=== PATIENT | female | born 1985 | race Caucasian/White ===

== ENCOUNTER 2025-02-24 10:34 | Outpatient (CLI) | payer OTHER, SELFPAY ==
--- OUTSIDE RECORDS SUMMARY | 2025-02-24 10:49 | XMS_ITS ---
Author Organization [facility] Address [address] [facility] [address] [place] [address] Care Team Providers Care Rehabilitation Services Counselor Name Role Phone SHILOHRENETTA Primary Care Provider Monster PRIETO MD [facility], JAMISON [facility] [phone] REASON FOR VISIT Cancel Appointment Request Encounters Encounter Location Date Provider Diagnosis [facility], [address] [place] [address] 02/12/2025 JAMISON PRIETO MD [facility] Plan Of Treatment Next Appt Details Provider Name:JAMISON PRIETO MD [facility], 03/10/2025 02:00:00 PM, [address] [place], [address], Progress Notes * INESSA GRANT:[birth year] (39 yo F)Acc No.[id number]:02/12/2025 Patient: Alice INESSA WISE :1985 A ge:39 Y S ex:Female Address:[facility] [place] [address] * true * Date: Generated for Printi ng/Faxing/eTransmitting on: 0 02/24/2025 10:48 AM CDT
--- OUTSIDE RECORDS SUMMARY | 2025-02-24 10:49 | XMS_ITS ---
Author Organization Unknown Address [address] [place] [address] [phone] Phone Care Team Providers Care Oim Consultant Name Role Phone LYNN DIAZ Attending Unavailable OTHER PHYSICIAN Primary Unavailable Social History Type Status Start Date End Date Code Code Syst em Smoking History Unknown if ever smoked [address] Sex Female Vital Signs Vital Sign Value Unit Bethel Value Bethel Unit Date/Time Recent/Initial? Code Code System Body Mass Index 48.80 kg/m2 08/20/2024 18:24 Initial 06511 -5 [facility] Systolic Blood Pressure 128 mm[Hg] 08/20/2024 18:24 Initial 8480- 6 [facility] Diastolic Blood Pressure 90 mm[Hg] 08/20/2024 18:24 Initial 8462- 4 [facility] Body Surface Area 2.14 m2 08/20/2024 18:24 Initial 3140- 1 [facility] Height 149.860 0 cm 59.00 in 08/20/2024 18:24 Initial 8302- 2 [facility] O2 Saturation 100 % 2023 18:24 Initial 94496 -5 [facility] Pulse 106.0 /min 08/20/2024 18:24 Initial 8867- 4 [facility] Temperature 37.8 Josette 100.0 F 08/20/20 18:24 Initial 8310- 5 [facility] Weight 109.59 kg 241.60 lbs 08/20/2024 18:24 Initial 69162 -7 [facility] Medications Medication Start Date End Date Route Frequency Dose Code Code System Medication Instructions Home Meds Benzonatate 200MG Oral Capsule, Liquid Filled 08/20/2024 Unknown By Mouth Three times a day 200 CAPSULE 302231 RxNorm 200 CAPSULE By Mouth Three times a day for cough predniSONE 20MG Oral Tablet 08/20/2024 Unknown By Mouth 1 TABLET 738789 RxNorm 1 TABLE T By Mouth At 7a and 4p x5 days: Take with food Doxycycline 100MG Oral Capsule 08/23/2024 Unknown By mouth Twice a day 1 TABLET 5737975 RxNorm Start on 08/23/24 if not improvin TABLET By mouth Twice a day for 7 days Hospital Discharge Instructions Should you have any questions prior to discharge, please contact a member of your healthcare team. If you have left the hospital and have any questions, please contact your primary care physician. Reason For Referral No Data Found Allergies and Adverse Reactions Allergy Substance Reaction Severity Start Date Concern Status Co de Code System AZITHROMYCIN Active RxNorm CLARITHROMYCIN Active 73337 RxNorm BACTRIM Active 608545 RxNorm Plan of Treatment Future Order Description Future Order Date Futu re Order Loinc: COVID & FLU A AND B CHITRA 08/20/2024 LOINC: 91715-1 Encounters Encounter Diagnosis Start Date Code Code Sys tem Acute sinusitis 08/20/2024 41431088 SNOMED-CT Personal Care Team Section Performer Name Performer Role Active Date Inactive Da te Progress Notes [facility] 08/20/2024 20:22 Admission Date/Time: 08/20/2024 17:48 Convenient Care Visit Chief Complaint: URI COUGH / FEVER HPI: Presents ambulatory to clinic with complaint of nonproductive cough, occasional wheezing, chest congestion, body aches, intermittent frontal headaches, fatigue, sinus congestion/pressure, and postnasal drainage x 3 days. intermittent fever X 1 day. This afternoon temp of 102.0 degrees Used OTC cough suppressant with some short-term improvement. Denies any SOB, CP, wheezing, sore throat, ABD pain, or N/V/D. PO intake is normal. Denies any known sick contacts. Denies that self or any family members have had any recent travels. Did receive COVID-19 vaccination. denies history of COVID-19 infection. PMH: depression, anxiety, thyroid disorder, psoriasis( currently Plaquenil), obesity(reports that she was put on metformin for obesity) Denies nicotine use. Denies marijuana use. Denies drug use. EXAM: General: NAD, A&O. Healthy appearance. body aches, frontal headache pain 4/10 at present on faces pain scale. HEAD: mild maxillary sinus tenderness; no frontal sinus tenderness Eyes: Normal appearance, clear. PERRLA ENT: Bilateral external ear canals clear, TM visible with mild TM bulging, clear effusion otherwise TM color WNL. Pharynx WNL1. Clearing oral secretions well. Mucus membranes are moist and pink. Nares are patent with clear drainage. Neck/Lymph: No adenopathy, non tender. ROM WNL. No nuchal rigidity. Lungs: faint expiratory wheeze noted to mid lobes posterior aspect. Respirations with ease. No retractions noted. Able to speak in full sentences. Occasional harsh cough noted during exam. Cardiac: heart regular rhythm, rate. No M/G/R MS/NEURO: CN II-XII grossly intact. EOMI. Upper and lower ext strength normal and equal bilaterally. Ambulated to room and within room with stable gait. No nuchal rigidity. Skin: warm, dry. Normal color ASSESSMENT/DIAGNOSIS: 1. Acute sinusitis, mild 2. Acute bronchitis, mild 3. acute cough, mild 4. Acute bilateral eustachian tube dysfunction, mild Zyrtec, Flonase, Afrin for 4 days only 5. acute myalgias, mild 6. Encounter to obtain excuse from work: ICD 10 CODE Z02.89 Differential diagnosis: COVID-19, RSV, influenza, Viral vs bacterial vs allergic rhinosinusitis, community-acquired pneumonia PLAN: Diagnostics: PCR flu/COVID-19 test: pending Medications: Prednisone, Tessalon Perles. Start doxycycline 08/23/24 if not improving OTC Zyrtec, Sudafed, Afrin, Flonase, Mucinex plain, honey, Tylenol or ibuprofen p.r.n. pain. Zinc, vitamin D 3, vitamin-C for immune health. Instructions: Take/use medications as directed. Increase fluids, Cool mist humidifier, nasal irrigation, saline gargles. Change the filter on your heating/air unit. Avoid respiratory irritants. Wash hands with antibacterial soap often and use hand granite cutter when washing with hand soap is unavailable. See above for any additional instructions Follow up: PCP or CC in 2 days if not improving, otherwise follow-up with PCP as needed. ER if any symptoms become severe *This plan has been reviewed with the patient. Questions and concerns were addressed. Patient verbalized understanding of the treatment plan and need for follow up. This examination was transcribed using the [employer] voice recognition system without human basting marker. In an effort to expedite patient care, this report has not been adjusted for typographical, or medical or syntax by a trained medical device assembler. Allergy Table Allergen Type Reaction AZITHROMYCIN Medication CLARITHROMYCIN Medication BACTRIM Medication Vital Signs: This Visit HtWt Date/Time BP (mm/Hg) BP Position/Site Heart Rate Resp Temp (F) SPO2% Pain Score Height (in) Weight (lbs/ozs) BMI Head Cir (cm) 08/20/2024 18:24 128/90 Sitting/Left Arm 106 100 Oral 100 % 59 in 241.10 48.8 Lab Results: This Visit: No Labs Available Meds Given This Visit: Meds ordered and administered this visit: No Current Medications Available Discharge Med List: Discharge Medications Medication Special Instructions Start Date Prescribing MD Doxycycline 100MG Oral Capsule Start on 08/23/24 if not improvin TABLET By mouth Twice a day for 7 days 08/23/2024 LYNN DIAZ predniSONE 20MG Oral Tablet 1 TABLET By Mouth At 7a and 4p x5 days: Take with food 08/20/2024 LYNN DIAZ Benzonatate 200MG Oral Capsule, Liquid Filled 200 CAPSULE By Mouth Three times a day for cough 08/20/2024 LYNN DIAZ
--- OUTSIDE RECORDS SUMMARY | 2025-02-24 10:49 | XMS_ITS | Referral Summary ---
Author Organization [facility] Address [address] [place] [address] Care Team Providers Care Director Wholesale Name Role Phone Kathie Aleman NP Primary Care Provider [phone] Allergies Active Allergy Reactions Criticality Noted Date Comments Azithromycin Nausea & Vomiting Low 07/23/2018 Beet Rash Medium 07/23/2018 Clarithromycin Edema,Unknown Medium 07/23/2018 Rash Sulfamethoxazole-Trimethoprim Shortness of breath,Unknown High 07/23/2018 Medications montelukast (SINGULAIR) 10 mg tablet montelukast 10 mg tablet TAKE ONE TABLET BY MOUTH ONCE DAILY Active albuterol HFA (PROVENTIL HFA,VENTOLIN HFA,PROAIR HFA) 90 mcg/actuation inhaler Ventolin HFA 90 mcg/actuation aerosol inhaler Active ibuprofen (ADVIL,MOTRIN) 800 mg tablet Take 1 tablet (800 mg total) by mouth as needed Active folic acid (FOLVITE) 1 mg tablet Take 1 tablet (1 mg total) by mouth daily 90 tablet 3 1 Active buPROPion XL (WELLBUTRIN XL) 150 mg 24 hr tablet bupropion HCl XL 150 mg 24 hr tablet, extended release Active clobetasoL (TEMOVATE) 0.05 % ointmentIndicat ions:Plaque Psoriasis Apply 1-2 times a day to rash on the elbows for no more than 2 weeks at a time 60 g 2 3 Active lidocaine (LIDODERM) 5 % PLACE ONE PATCH ONTO THE SKIN DAILY, REMOVE AND DISCARD PATCH WITHIN 12 HOURS OR DIRECTED BY DOCTOR 3 Active DULoxetine 40 mg capsule,delayed release(DR/EC) Take 1 capsule by mouth daily 3 Active phentermine (ADIPEX-P) 37.5 mg tablet Take 1 tablet (37.5 mg total) by mouth daily Active metFORMIN (GLUCOPHAGE) 500 mg tablet Take 1 tablet (500 mg total) by mouth daily Active metoprolol tartrate (LOPRESSOR) 25 mg immediate release tablet TAKE 1/2 (ONE-HALF) TABLET BY MOUTH TWICE DAILY Active levothyroxine (SYNTHROID) 100 mcg tablet Take 1 tablet (100 mcg total) by mouth daily 4 Active hydroxychloroqu ine (PLAQUENIL) 200 mg tablet Take 2 tablets (400 mg total) by mouth daily 180 tablet 1 5 Active Active Problems Problem Noted Date Diagnosed Date Psoriasis 01/29/2020 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 Hypothyroidism 04/16/2018 Lupus erythematosus 04/16/2018 Obesity 04/16/2018 cardiomyopathy 04/16/2018 Fibromyalgia 12/20/2017 Resolved Problems Problem Noted Date Diagnosed Date Resolved Date Acute sinusitis 04/16/2018 05/18/2020 Disorder of thyroid gland 04/16/2018 Ganglion cyst 04/16/2018 05/18/2020 Vaginal infection 04/16/2018 05/18/2020 Varicose veins of left lower extremity 04/16/2018 05/18/2020 Social History Tobacco Use Types Packs/Day Years Used Date Smoking Tobacco: Never Smokeless Tobacco: Never Tobacco Cessation:Counseling Given: Not Answered Alcohol Use Standard Drinks/Week Comments Yes 0 (1 standard drink = 0.6 oz pur e alcohol) rarely AUDIT-C Answer Date Recorded Frequency of Alcohol Consumption Not on file 10/23/2024 Q2: How many drinks containi ng alcohol do you have on a typical day when you are drinking? Patient does not drink 5 Frequency of Binge Drinking Not on file 06/2025 Comments No Sex and Gender Information Value Date Recorded Sex Assigned at Not on file Legal Sex Female 6:51 AM EXPLOSIVE ORDNANCE TECHNICIAN Gender Identity Female 08/01/2020 7:11 PM CDT Sexual Orientation Straight 08/31/2022 5: 47 PM EXPLOSIVE ORDNANCE TECHNICIAN Last Filed Vital Signs Vital Sign Reading Time Taken Comments Blood Pressure 124/80 10/23/2024 11:02 AM EXPLOSIVE ORDNANCE TECHNICIAN Pulse 78 10/23/2024 11:02 AM EXPLOSIVE ORDNANCE TECHNICIAN Temperature 36.2 C (97.1 F) 10/23/2024 11:02 AM EXPLOSIVE ORDNANCE TECHNICIAN Respiratory Rate 16 07/23/2018 9:54 AM CDT Oxygen Saturation 100% 09/03/2023 9:20 AM EXPLOSIVE ORDNANCE TECHNICIAN Inhaled Oxygen Concentration - - Weight 110.9 kg (244 lb 8 oz) 10/23/2024 11:02 A M EXPLOSIVE ORDNANCE TECHNICIAN Height 149.9 cm (4' 11 ) 10/23/2024 11:02 AM EXPLOSIVE ORDNANCE TECHNICIAN Body Mass Index 49.38 10/23/2024 11:02 AM EXPLOSIVE ORDNANCE TECHNICIAN Plan of Treatment Not on file Insurance [facility] [place] [address] [facility] MEDICAID [facility] HMO/PPO Address: [address] [address] [place] [address] [facility] Care Teams Director Wholesale Relationship Specialty Start Date End Date Kathie Aleman NP [address] [place] [address] PCP - General Nurse Practitioner 05/18/20
--- OUTSIDE RECORDS SUMMARY | 2025-02-24 10:49 | XMS_ITS | Clinical Summary ---
Author Organization [facility] Address [address] [place] [address] Care Team Providers Care Bartenders Name Role Phone Kathie Aleman NP Primary Care Provider [phone] Allergies Active Allergy Reactions Criticality Noted Date [...] veins of left lower extremity 04/16/2018 05/18/2020 Surgical History Surgery Date Site/Laterality Comments SECTION 2006, 2008 CHOLECYSTECTOMY TONSILLECTOMY AND ADENOIDECTOMY TUMOR REMOVAL DILATION AND CURETTAGE OF UTERUS 2005, 2004 Medical History Medical History Date Comments Asthma Thyroid disease Lupus Fibromyalgia Heart disease Family History Medical History Relation Name Comments Heart disease Other 1 Heart Disease - (Added by TW Conv) Diabetes type II Other 2 Type II Alyssa betes Mellitus - (Added by TW Conv) Cancer Other 3 Cancer - (Added by TW Conv) Hypertension Other 4 Hypertension - (Added by TW Conv) Thyroid disease Other 5 Thyroid Diso rder - (Added by TW Conv) Relation Name Status Comments Other 1 Other 2 Other 3 Other 4 Other 5 Social History Tobacco Use Types Packs/Day Years [...] you are drinking? Patient does not drink Frequency of Binge Drinking Not on file 06/2025 Comments No Sex and Gender Information Value Date Recorded Sex Assigned at Not on file Legal Sex Female 6:51 AM HR ADMINISTRATOR Gender Identity Female 08/01/2020 7:11 PM CDT Sexual Orientation Straight 08/31/2022 5: 47 PM HR ADMINISTRATOR Obstetrics History Last Filed Vital Signs Vital Sign Reading Time Taken Comments Blood Pressure 124/80 10/23/2024 11:02 AM HR ADMINISTRATOR Pulse 78 10/23/2024 11:02 AM HR ADMINISTRATOR Temperature 36.2 C (97.1 F) 10/23/2024 11:02 AM HR ADMINISTRATOR Respiratory Rate 16 07/23/2018 9:54 AM CDT Oxygen Saturation 100% 09/03/2023 9:20 AM HR ADMINISTRATOR Inhaled Oxygen Concentration - - Weight 110.9 kg (244 lb 8 oz) 10/23/2024 11:02 A M HR ADMINISTRATOR Height 149.9 cm (4' 11 ) 10/23/2024 11:02 AM HR ADMINISTRATOR Body Mass Index 49.38 10/23/2024 11:02 AM HR ADMINISTRATOR Plan of Treatment Health Maintenance Due Date Last Done Comments Cervical Cancer Screening 1985 Depression Screening 1985 Hepatitis C Screening 1985 Varicella Vaccines (1 of 2 - 13+ 2-dose series) 1999 Hepatitis B Screening 2004 Regular Well Visit/Exam 18-64 2004 Pneumococcal vaccine <65 (1 of 2 - PCV) 2005 Zoster Vaccine (1 of 2) 2005 Influenza Vaccine (#1) 2024 07/06/2016 DTaP/Tdap/Td Vaccine (2 - Td or Tdap) 06/14/2027 06/14/2017 HPV Vaccines Aged Out No longer eligi ble based on patient's age to complete this topic Insurance [facility] MEDICAID [facility] MEDICAID [facility] [place] [address] Care Teams Bartenders Relationship Specialty Start Date End Date Kathie Aleman NP [address] [place] [address] PCP - General Nurse Practitioner 05/18/20
--- OUTSIDE RECORDS SUMMARY | 2025-02-24 10:49 | XMS_ITS ---
Author Organization [facility] Address [address] [facility] [address] [place] [address] Care Team Providers Care Canal Structure Operator Name Role Phone SHILOH RENETTA Primary Care Provider Monster BILLY MD [facility], [facility] Unavailable [phone] Allergies Allergen (clinical drug ingredient) Drug/Non Drug Allergy documented on EMR Reaction Allergy Type Onset Date Status sulfamethoxazole / trimethoprim Bactrim Unknown Drug Allergy Active Biaxin Unknown Drug Allergy Active REASON FOR VISIT 1 month f/u (s/p Echo @ [facility]) Medications Medication SIG (Take, Route, Frequency, Duration) Notes Start Date End Date Status Cymbalta 30 MG 1 capsule Orally Onc e a day Active Phentermine HCl 37.5 MG TAKE 1 TABLET BY MOUTH ONCE DAILY Oral for 30 Days Active buPROPion HCl ER (XL) 150 MG TAKE 1 TABL ET BY MOUTH ONCE DAILY Oral for 30 Days Active metFORMIN HCl 500 MG TAKE 1 TABLET BY [place] [facility] ONCE DAILY Oral for 30 Days Active Metoprolol Tartrate 25 MG Oral for 30 Days Active Levothyroxine Sodium 100 MCG 1 tablet in the morning on an empty stomach Orally Once a day Active DULoxetine HCl 40 MG TAKE 1 CAPSULE BY MOUTH ONCE DAILY Oral for 30 Days Active DULoxetine HCl 40 MG Oral for 30 Days Active Hydroxychloroquine Sulfate 2 00 MG TAKE 2 TABLETS BY MOUTH ONCE DAILY Oral for 30 Days Active Vital Signs Blood pressure systolic 120 mm Hg 02/19/20 24 Blood pressure diastolic 76 mm Hg 024 Heart Rate 80 /min 02/19/2024 Respiratory Rate 16 /min 02/19/2024 Height 59 in 02/19/2024 Weight 240 lbs 02/19/2024 BMI 48.47 kg/m2 02/19/2024 Weight-kg 108.86 kg 02/19/2024 Encounters Encounter Location Date Provider Diagnosis [facility], [address] [place] [address] 02/19/2024 JAMISON BILLY MD [facility] Preoperative cardiovascular examination Z01.810 Assessments Encounter Date Diagnosis (ICD Code) Assessment Notes Treatment Notes Treatment Clinical Notes Section Notes 02/19/2024 Preoperative cardiovascular examination (ICD-10 - Z01.810) Patient has no risk factors. Recent echo (01/30/24) reported normal LV Fx, EF 55%, mild MR, trace TR, trace PI. Patient is cleared for cervical spine surgery from cardiology standpoint. Plan Of Treatment Treatment Notes Assessment Notes Preoperative cardiovascular examination Patient has no risk factors. Recent echo (01/30/24) reported normal LV Fx, EF 55%, mild MR, trace TR, trace PI. Patient is cleared for cervical spine surgery from cardiology standpoint. Next Appt Details Follow Up: 1 Year, Reason: Provider Name:JAMISON BILLY MD [facility], 03/10/2025 02:00:00 PM, [facility] [place], [address], Progress Notes * INESSA GRANT:[birth year] (38 yo F)Acc No.[id number]:02/19/2024 Progress Notes Patient: Alice INESSA WISE Provider: Shelia Billy MD :1985 A ge:38 Y S ex:Female Date:02/19/2024 [address] [id number] Pcp:RENETTA MATAMOROS Subjective: * Chief Complaints: * 1 month f/u (s/p Echo @ [facility]) * HPI: S creening: This is a 38 year old female patient with a past medical history including lupus, fibromyalgia, asthma, hypothyroidism, anxiety/depression, CHF (post-) in 2006, who presents today for a follow up visit for surgical clearance. R ecent echo (01/30/24) reported normal LV Fx, EF 55%, mild MR, trace TR, trace PI. P dario is doing well overall at today's visit with no significant complaints. Denies chest pain, palpitations, or worsening shortness of breath. Patient is cleared for cervical spine surgery from a cardiology standpoint. * Medical History: * Surgical History: l ap cholecsystectomy right arm tumor surgery c. section x2 adenoid removal * Hospitalization/Major Diagno stic Procedure: N o Hospitalization History. * Family History: N o Family History documented.. * Medications: T akingLevothyroxine Sodium 100 MCG Tablet 1 tablet in the morning on an empty stomach Orally Once a day Cymbalta 30 MG Capsule Delayed Release Particles 1 capsule Orally Once a day Phentermine HCl 37.5 MG Tablet TAKE 1 TABLET BY MOUTH ONCE DAILY Oral metFORMIN HCl 500 MG Tablet TAKE 1 TABLET BY MOUTH ONCE DAILY Oral Metoprolol Tartrate 25 MG Tablet Oral buPROPion HCl ER (XL) 150 MG Tablet Extended Release 24 Hour TAKE 1 TABLET BY MOUTH ONCE DAILY Oral DULoxetine HCl 40 MG Capsule Delayed Release Particles TAKE 1 CAPSULE BY MOUTH ONCE DAILY Oral DULoxetine HCl 40 MG Capsule Delayed Release Particles Oral Hydroxychloroquine Sulfate 200 MG Tablet TAKE 2 TABLETS BY MOUTH ONCE DAILY Oral Taking Levothyroxine Sodium 100 MCG Tablet 1 tablet in the morning on an empty stomach Orally Once a day Taking Cymbalta 30 MG Capsule Delayed Release Particles 1 capsule Orally Once a day Taking Phentermine HCl 37.5 MG Tablet TAKE 1 TABLET BY MOUTH ONCE DAILY Oral Taking metFORMIN HCl 500 MG Tablet TAKE 1 TABLET BY MOUTH ONCE DAILY Oral Taking Metoprolol Tartrate 25 MG Tablet Oral Taking buPROPion HCl ER (XL) 150 MG Tablet Extended Release 24 Hour TAKE 1 TABLET BY MOUTH ONCE DAILY Oral Taking DULoxetine HCl 40 MG Capsule Delayed Release Particles TAKE 1 CAPSULE BY MOUTH ONCE DAILY Oral Taking DULoxetine HCl 40 MG Capsule Delayed Release Particles Oral Taking Hydroxychloroquine Sulfate 200 MG Tablet TAKE 2 TABLETS BY MOUTH ONCE DAILY Oral * Allergies: B actrimBiaxinno[Allergies Verified] Objective: * Vitals: B P:120/76mm Hg, HR:80/min, RR:16/min, Ht:59in, Wt:240lbs, BMI:48.47Index, Wt-k.86 kg, Body Surface Area: 2.13. * Examination: G eneral Examination: General appearance: a lert, pleasant, well-nourished and in no acute distress. Head: n ormocephalic, atraumatic. Neck / thyroid: c arotid pulses are normal and without bruits. Heart: r egular rate and rhythm without murmurs, gallops, clicks or rubs. Lungs: c lear to auscultation bilaterally, with good air movement and no rales, rhonchi or wheezes. Extremities: n ormal extremity with no clubbing, cyanosis or edema. Neurologic: a lert and oriented. Psych: n ormal affect / mood. E KG: Heart rate: n ormal rate. Heart rhythm: s inus rhythm (rapid). ST segment: N o acute ischemic changes. Assessment: * Assessment: 1. P reoperative cardiovascular examination - Z01.810 (Primary) Plan: * Treatment: * Procedure Codes: 9 3000 -ELECTROCARDIOGRAM, COMPLETE * Preventive Medicine: Counseling: C are goal follow-up plan: A guido Normal BMI Follow-up G iving encouragement to exercise, Lifestyle education regarding diet. Screenings: F all risk screening F all Risk Assessment: N o falls in the past year. * Follow Up: 1 Year * Billing Information: * Visit Code: 03065 Office Visit, Est Pt., Level 3. * Procedure Codes: 67380 -ELECTROCARDIOGRAM, COMPLETE. * Sign off status: Completed true * Provider: Shelia Billy MD Date: 0 02/19/2024 Generated for Sb tena/Jay/Eagleitting on: 0 02/24/2025 10:49 AM CDT History and Physical Notes * HPI (History of Present Illness) Category Sub-Category Detail Notes Category Not es Screening This is a 38 year old female patient with a past medical history including lupus, fibromyalgia, asthma, hypothyroidism, anxiety/depression, CHF (post-) in 2006, who presents today for a follow up visit for surgical clearance. Recent echo (01/30/24) reported normal LV Fx, EF 55%, mild MR, trace TR, trace PI. Patient is doing well overall at today's visit with no significant complaints. Denies chest pain, palpitations, or worsening shortness of breath. Patient is cleared for cervical spine surgery from a cardiology standpoint. Examination Category Sub-Category Detail Notes Category Not es General Examination General appearance: alert, p leasant, well-nourished and in no acute distress Head: normocephalic, atrau matic Neck / thyroid: carotid pulses are n ormal and without bruits Heart: regular rate and rhy thm without murmurs, gallops, clicks or rubs Lungs: clear to auscultatio n bilaterally, with good air movement and no rales, rhonchi or wheezes Neurologic: alert and oriented Extremities: normal extremity wit h no clubbing, cyanosis or edema Psych: normal affect / mood EKG Heart rate: normal rate Heart rhythm: sinus rhythm (rapid) ST segment: No acute ischemic ch anges
--- OUTSIDE RECORDS SUMMARY | 2025-02-24 10:49 | XMS_ITS | Patient Health Record ---
Author Organization [facility] Address [address] [facility] [address] [place] [address] Care Team Providers Care Neurology Manager Name Role Phone SHILOH RENETTA Primary Care Provider Unavaillon PRIETO MD [facility], [facility] Unavailable [phone] Allergies Allergen (clinical drug ingredient) Drug/Non Drug Allergy documented on EMR Reaction Allergy Type Onset Date Status sulfamethoxazole / trimethoprim Bactrim Unknown Drug Allergy Active Biaxin Unknown Drug Allergy Active Reason For Referral No Information Medications Medication SIG (Take, Route, Frequency, Duration) Notes Start Date End Date Status Cymbalta 30 MG 1 capsule Orally Onc e a day Active Phentermine HCl 37.5 MG TAKE 1 TABLET BY MOUTH ONCE DAILY Oral for 30 Days Active Levothyroxine Sodium 100 MCG 1 tablet in the morning on an empty stomach Orally Once a day Active buPROPion HCl ER (XL) 150 MG TAKE 1 TABL ET BY MOUTH ONCE DAILY Oral for 30 Days Active DULoxetine HCl 40 MG TAKE 1 CAPSULE BY MOUTH ONCE DAILY Oral for 30 Days Active metFORMIN HCl 500 MG TAKE 1 TABLET BY MO UTH ONCE DAILY Oral for 30 Days Active Metoprolol Tartrate 25 MG Oral for 30 Days Active DULoxetine HCl 40 MG Oral for 30 Days Active Hydroxychloroquine Sulfate 2 00 MG TAKE 2 TABLETS BY MOUTH ONCE DAILY Oral for 30 Days Active Social History Tobacco Use: Social History Observation Description Date Details (start date - stop date) Never Smoker NA - NA Household Question Answer Notes Number of children in household: 2 14, 16 years old Tobacco Use/Smoking Question Answer Notes Tobacco use: nonsmoker Problems Problem Type SNOMED Code ICD Code Onset Dates Problem Status W/U Status Risk Notes Problem 54540471 Heart failure, unspecified HF chronicity, unspecified heart failure type (I50.9) Active confirmed Encounters Encounter Location Date Provider Diagnosis [facility], [address] [place] [address] 02/12/2025 JAMISON PRIETO MD [facility] Plan Of Treatment Next Appt Details Provider Name:JAMISON PRIETO MD [facility], 03/10/2025 02:00:00 PM, [address] [place], [address], Insurance Providers Payer Name Payer Address Payer Phone Subscriber Number Group Number Insured Name Patient Relationship to Insured Coverage Start Date Coverage End Date [facility] [address] [address] [place] [address] [id number] INESSA GRANT Self - patient is the insured Medical (General) History Medical History History ICD Code lupus fibromyalgia asthma hypothyroidism anxiety/depression CHF (post-) 2006 Surgical History Surgery Date(Month/Year) lap cholecsystectomy right arm tumor surgery c. section x2 adenoid removal
--- OUTSIDE RECORDS SUMMARY | 2025-02-24 10:49 | XMS_ITS ---
Author Organization Unknown Address [address], [place] [id number] Phone Care Team Providers Care Paste Up Worker Name Role Phone LYNN DIAZ FRIEDA Attending Unavailable Results COVID & FLU A AND B CHITRA - Co llect Date/Time: 08/20/2024 17:48 [facility] ID: [id number] [address], [place], [id number] LOINC: 64971-6 Test Value Unit Reference Range Code Code System Flag SARS CoV-2 NOT DETECTED INFLUENZA A PCR NOT DETECTED 23597-9 LOINC INFLUENZA B PCR NOT DETECTED 86481-7 LOINC Social History Type Status Start Date End Date Code Code Syst em Smoking History Unknown if ever smoked [address] Sex Female Medications Medication Start Date End Date Route Frequency Dose Code Code System Medication Instructions Home Meds Benzonatate 200MG Oral Capsule, Liquid Filled 08/20/2024 Unknown By Mouth Three times a day 200 CAPSULE 673043 RxNorm 200 CAPSULE By Mouth Three times a day for cough predniSONE 20MG Oral Tablet 08/20/2024 Unknown By Mouth 1 TABLET 465919 RxNorm 1 TABLE T By Mouth At 7a and 4p x5 days: Take with food Doxycycline 100MG Oral Capsule 08/23/2024 Unknown By mouth Twice a day 1 TABLET 3384508 RxNorm Start on 08/23/24 if not improvin [...] Code System AZITHROMYCIN Active RxNorm CLARITHROMYCIN Active 11362 RxNorm BACTRIM Active 301010 RxNorm Plan of Treatment No Data Found Encounters Encounter Diagnosis Start Date Code Code Sys tem Cough 08/20/2024 28199894 SNOMED-CT Personal Care Team Section Performer Name Performer Role Active Date Inactive Da te
--- OUTSIDE RECORDS SUMMARY | 2025-02-24 10:49 | XMS_ITS ---
Author Organization [facility] Address [address] [facility] [address] [place] [address] Care Team Providers Care Continuous Churn Buttermaker Name Role Phone RENETTA MATAMOROS Primary Care Provider Monster BILLY MD [facility], [facility] [phone] REASON FOR VISIT 1 yr f/up Encounters Encounter Location Date Provider Diagnosis [facility], [address] [place] [address] 02/17/2025 JAMISON BILLY MD [facility] Plan Of Treatment Next Appt Details Provider Name:JAMISON BILLY MD [facility], 03/10/2025 02:00:00 PM, [address] [place], [address], Progress Notes * INESSA GRANT:[birth year]17 (39 yo F)Acc No.[id number]:02/17/2025 Progress Notes Patient: Alice INESSA WISE Provider: Shelia Billy MD :1985 A ge:39 Y S ex:Female Date:02/17/2025 [address] [facility] Pcp:RENETTA MATAMOROS Subjective: * Chief Complaints: * 1 . 1 yr f/up. * Medical History: Objective: * Vitals: Assessment: Plan: * Treatment: * Billing Information: * Visit Code: * Procedure Codes: * Electronic signature of JAMISON BILLY MD, FACC, MD on 02/24/2025 at 10:48 AM CDT Sign off status: Pending * Provider: Shelia Billy MD Date: 02/17/2025 Generated for Sb tena/Jay/Ahsan on: 0 02/24/2025 10:48 AM CDT
--- OUTSIDE RECORDS SUMMARY | 2025-02-24 10:49 | XMS_ITS | Encounter Summary ---
Author Organization [facility] Address [address] [place] [address] Phone Care Team Providers Care Chefs Name Role Phone Kathie Aleman NP Primary Care Provider [phone] Encounter Details Date Type Department Care Team (Late st Contact Info) Description 06/23/2020 Orders Only [facility] Scanning, Provider Social History Tobacco Use Types Packs/Day Years Used Date Smoking Tobacco: Never Smokeless Tobacco: Never Alcohol Use Standard Drinks/Week Comments Yes 0 (1 standard drink = 0.6 oz pur e alcohol) rarely Comments No Sex and Gender Information Value Date Recorded Sex Assigned at Not on file Legal Sex Female 6:51 AM FOOD SAFETY COORDINATOR Gender Identity Female 08/01/2020 7:11 PM CDT Sexual Orientation Straight 08/31/2022 5: 47 PM FOOD SAFETY COORDINATOR documented as of this encounter Plan of Treatment Not on file documented as of this encounter Procedures Procedure Name Priority Date/Time Associated Diagnosis Comments SCAN - LABS 06/23/2020 documented in this encounter Results * SCAN - LABS (06/23/2020) us Provider Scanning Final Result documented in this encounter Visit Diagnoses Not on filedocumented in this encounter Care Teams Chefs Relationship Specialty Start Date End Date Kathie Aleman NP [address] [place] [address] PCP - General Nurse Practitioner 05/18/20 documented as of this encounter
--- NOTE | 2025-02-24 11:15 | NEURO_ITS ---
Impression: # Complains of numbness of hands. # Normal Nerve Conduction Study. # No Carpal Tunnel Syndrome or ulnar neuropathy. # Normal needle/EMG exam. # Clinical correlation recommended. Nerve Conduction Studies Anti Sensory Summary Table Stim Site NR Peak (ms) P-T Amp (µV) Site1 Site2 Delta-P (ms) Dist (cm) Maxx (m/s) Left Median Anti Sensory (2-3nd Digit) Wrist 2.7 76.5 Wrist 2-3nd Digit 2.7 14.0 52 Wrist 2.5 85.0 Wrist 2-3nd Digit 2.7 14.0 52 Right Median Anti Sensory (2-3nd Digit) Wrist 2.4 78.4 Wrist 2-3nd Digit 2.4 14.0 58 Wrist 2.4 87.9 Wrist 2-3nd Digit 2.4 14.0 58 Left Radial Anti Sensory (Base 1st Digit) Wrist 2.7 10.3 Wrist Base 1st Digit 2.7 0.0 Right Radial Anti Sensory (Base 1st Digit) Wrist 1.9 47.8 Wrist Base 1st Digit 1.9 0.0 Left Ulnar Anti Sensory (5th Digit) Wrist 2.3 86.9 Wrist 5th Digit 2.3 14.0 61 Right Ulnar Anti Sensory (5th Digit) Wrist 2.1 64.2 Wrist 5th Digit 2.1 14.0 67 Motor Summary Table Stim Site NR Onset (ms) O-P Amp (mV) Site1 Site2 Delta-0 (ms) Dist (cm) Maxx (m/s) Left Median Motor (Abd Poll Brev) Wrist 3.0 8.4 Elbow Wrist 3.8 24.0 63 Elbow 6.8 10.5 Right Median Motor (Abd Poll Brev) Wrist 3.0 4.3 Elbow Wrist 4.1 26.0 63 Elbow 7.1 2.7 Left Ulnar Motor (Abd Dig Minimi) Wrist 2.3 9.6 A Elbow Wrist 4.2 26.0 62 A Elbow 6.5 8.3 B Elbow Wrist 2.8 19.0 68 B Elbow 5.1 8.9 Right Ulnar Motor (Abd Dig Minimi) Wrist 2.9 6.1 A Elbow Wrist 4.1 26.0 63 A Elbow 7.0 4.2 B Elbow Wrist 3.0 18.0 60 B Elbow 5.9 4.6 F Wave Studies NR F-Lat (ms) L-R F-Lat (ms) Left Median (Mrkrs) (Abd Poll Brev) 25.76 1.07 Right Median (Mrkrs) (Abd Poll Brev) 24.69 1.07 Left Ulnar (Mrkrs) (Abd Dig Min) 23.84 1.16 Right Ulnar (Mrkrs) (Abd Dig Min) 24.99 1.16 EMG Side Muscle Nerve Root Ins Act Fibs Amp Dur Recrt Comment Right 1stDorInt Ulnar C8-T1 Nml Nml Nml Nml Nml Right Ext Indicis Radial (Post Int) C7-8 Nml Nml Nml Nml Nml Right Ext Digitorum Radial (Post Int) C7-8 Nml Nml Nml Nml Nml Right BrachioRad Radial C5-6 Nml Nml Nml Nml Nml Right PronatorTeres Median C6-7 Nml Nml Nml Nml Nml Right Abd Poll Brev Median C8-T1 Nml Nml Nml Nml Nml Right ABD Dig Min Ulnar C8-T1 Nml Nml Nml Nml Nml Right FlexPolLong Median (Ant Int) C7-8 Nml Nml Nml Nml Nml Right Abd Poll Long Radial (Post Int) C7-8 Nml Nml Nml Nml Nml Left 1stDorInt Ulnar C8-T1 Nml Nml Nml Nml Nml Left Ext Indicis Radial (Post Int) C7-8 Nml Nml Nml Nml Nml Left Ext Digitorum Radial (Post Int) C7-8 Nml Nml Nml Nml Nml Left BrachioRad Radial C5-6 Nml Nml Nml Nml Nml Left PronatorTeres Median C6-7 Nml Nml Nml Nml Nml Left Abd Poll Brev Median C8-T1 Nml Nml Nml Nml Nml Left ABD Dig Min Ulnar C8-T1 Nml Nml Nml Nml Nml Left FlexPolLong Median (Ant Int) C7-8 Nml Nml Nml Nml Nml Left Abd Poll Long Radial (Post Int) C7-8 Nml Nml Nml Nml Nml Right Biceps Musculocut C5-6 Nml Nml Nml Nml Nml Right Triceps Radial C6-7-8 Nml Nml Nml Nml Nml Right Deltoid Axillary C5-6 Nml Nml Nml Nml Nml Left Biceps Musculocut C5-6 Nml Nml Nml Nml Nml Left Triceps Radial C6-7-8 Nml Nml Nml Nml Nml Left Deltoid Axillary C5-6 Nml Nml Nml Nml Nml MTDD
== END 2025-02-24 10:35 | disposition home or self-care (01) ==
PROVIDERS: PCP Internal Medicine; Visit Provider Orthopaedic Surgery
DX: R20.2 Paresthesia of skin (principal)
CPT/HCPCS: 95886; 95911